=== PATIENT | male | born 1975 ===

== ENCOUNTER 2020-11-11 19:37 | Emergency (ER) | payer OTHER ==
[~2020-11-11] VITALS: Ht 185.4 cm; Wt 74.8 kg
== END 2020-11-11 21:52 | disposition home or self-care (01) ==
LOC: ER 19:37
DX: S01.82XA Laceration with foreign body of other part of head, initial encounter (principal); W26.8XXA Contact with other sharp object(s), not elsewhere classified, initial encounter; Y93.18 Activity, surfing, windsurfing and boogie boarding; Y92.832 Beach as the place of occurrence of the external cause; Y99.8 Other external cause status